=== PATIENT | female | born 1990 | race Caucasian/White ===

== ENCOUNTER 2024-03-24 20:13 | Emergency (ER) | payer MEDICARE, MEDICAID ==
[~2024-03-24 20:13] MED LIST: Iopamidol 370 76% 100 ML VIAL ONE
[2024-03-24 20:46] LABS: Bilirubin Negative (Negative); Blood, Urine Negative (Negative); Clarity Clear (Clear); Glucose, Urine (Dipstick) Negative (Negative); Ketone, Urine Negative (Negative); Leukocyte Small (Negative); Nitrite Positive (Negative); Protein, Urine (Dipstick) Negative (Neg-Trace); Urobilinogen 0.2 mg/dL (Less than 2)
[2024-03-24] MEDS ORDERED: Sodium Chloride 0.9% 1,000 ML ONE (20:46)
[2024-03-24] MEDS ORDERED: Acetaminophen 325 MG TAB ONE (20:46)
[2024-03-24 20:49] LABS: Pregnancy Test - Urine (BHCG) Negative (Negative); Pregu Control Background? CLEAR/WHITE (CLR/WHITE); Pregu Control Bar Appear? YES (CONTROL BAR)
[2024-03-24 20:59] LABS: Bacteria/HPF Rare-Few HPF (None Seen); CAUTI Indications for Culture Fever or rigors; Mucous/LPF Rare LPF (<2+); RBC/HPF 0-3 HPF (0-3); WBC/HPF 0-3 HPF (0-3)
[2024-03-24 21:01] LABS: Urine Culture Reflex No No
[2024-03-24 21:30] LABS: Influenza A by NAA Not Detected (NotDetected); Influenza B by NAA Not Detected (NotDetected); SARS-CoV-2 NAA Rapid Test Not Detected (NotDetected)
[2024-03-24 21:30] LABS: ALT (SGPT) 20 U/L (8-55); AST (SGOT) 22 U/L (5-34); Albumin 3.8 g/dL (3.5-5.0); Alkaline Phosphatase 63 U/L (40-110); Anion Gap 14 mmol/L (10-20); BUN (Urea Nitrogen) 6 mg/dL (7.0-18.7); Bilirubin, Total 0.4 mg/dL (0.2-1.2); Calc. Creatinine Clearance 0 mL/min (70-130); Calcium 10.1 mg/dL (7.8-10.44); Carbon Dioxide 20 mmol/L (22-29); Chloride 102 mmol/L (98-107); Estimated GFR 95; Glucose 120 mg/dL (70-105); Potassium 3.5 mmol/L (3.5-5.1); Protein, Total 6.8 g/dL (6.0-8.3); Sodium 132 mmol/L (136-145)
[2024-03-24 21:31] LABS: Band 5 % (5-11); Eosinophils 2 % (0-10); Hematocrit 36.1 % (36.0-47.0); Hemoglobin 11.4 g/dL (12.0-16.0); Lymphocytes 28 % (21-51); MDiff Complete? YES; Mean Corpuscular HGB CONC 31.7 g/dL (32.0-36.0); Mean Corpuscular Volume 94.7 fl (78.0-98.0); Mean Platelet Volume 6.7 fL (7.4-10.4); Monocytes 4 % (0-10); Neutrophil 58 % (42-75); Platelet Count 169 10x3/uL (130-400); RBC Distribution Width 11.8 % (11.5-14.5); Red Blood Cell (RBC) Count 3.82 mill/uL (4.20-5.40); White Blood Cell (WBC) Count 12.9 10x3/uL (4.8-10.8)
[2024-03-24] MEDS ORDERED: LevoFLOXacin 500 MG TAB ONE (22:56)
[2024-03-24] MEDS ORDERED: LevoFLOXacin 250 MG TAB ONE (22:57)
== END 2024-03-24 23:10 | disposition home or self-care (01) ==
LOC: MADERS 20:13
DX: N10 Acute pyelonephritis (principal); F17.210 Nicotine dependence, cigarettes, uncomplicated
CPT/HCPCS: 0240U; 74177; 80053; 81001; 81025; 85025; 87081; 87430; J7030; Q9967

== ENCOUNTER 2024-09-25 21:20 | Emergency (ER) | payer MEDICARE, MEDICAID ==
[2024-09-25 21:53] LABS: Bacteria/HPF 1+ HPF (None Seen); Bilirubin Negative (Negative); Blood, Urine Negative (Negative); CAUTI Indications for Culture Fever or rigors; Clarity Cloudy (Clear); Glucose, Urine (Dipstick) Negative (Negative); Ketone, Urine Negative (Negative); Leukocyte Trace (Negative); Mucous/LPF 3+ LPF (<2+); Nitrite Positive (Negative); Protein, Urine (Dipstick) Negative (Neg-Trace); RBC/HPF 0-3 HPF (0-3); Specific Gravity, Urine 1.015 (1.005-1.030); Urobilinogen 0.2 mg/dL (Less than 2); WBC/HPF Greater than 50 HPF (0-3); pH, Urine 6.5 (5.0-9.0)
[2024-09-25 21:54] LABS: Urine Culture Reflex Yes Yes
[2024-09-25] MEDS ORDERED: Sodium Chloride 0.9% 100 ML ONE (22:01)
[2024-09-25] MEDS ORDERED: Sodium Chloride 0.9% 2,000 ML ONE (22:01)
[2024-09-25] MEDS ORDERED: Cefepime 1 GM VIAL ONE (22:01)
[2024-09-25] MEDS ORDERED: Acetaminophen 500 MG TAB ONE (22:01)
[2024-09-25 22:07] LABS: #Basophils 0.1 thou/uL (0.0-0.2); #Lymphocytes 1.4 thou/uL (1.20-3.40); #Monocytes 1.5 thou/uL (0.11-0.59); #Neutrophils 12.2 thou/uL (1.40-6.50); %Basophils 0.9 % (0.0-1.0); %Eosinophils 0.1 % (0.0-10.0); %Lymphocytes 8.9 % (21.0-51.0); %Monocytes 9.7 % (0.0-10.0); %Neutrophils 80.5 % (42.0-75.0); Hematocrit 37.7 % (36.0-47.0); Hemoglobin 12.5 g/dL (12.0-16.0); Mean Corpuscular HGB CONC 33.2 g/dL (32.0-36.0); Mean Corpuscular Hemoglobin 30.5 pg (27.0-31.0); Mean Corpuscular Volume 91.9 fl (78.0-98.0); Mean Platelet Volume 7.1 fL (7.4-10.4); Platelet Count 217 10x3/uL (130-400); White Blood Cell (WBC) Count 15.1 10x3/uL (4.8-10.8)
[2024-09-25 22:17] LABS: BHCG - Serum Negative (NEGATIVE); Pregs Control Background? CLEAR/WHITE (CLR/WHITE); Pregs Control Bar Appear? YES (CONTROL BAR)
[2024-09-25 22:26] LABS: ALT (SGPT) 18 U/L (Less than 34); AST (SGOT) 24 U/L (11-34); Alkaline Phosphatase 70 U/L (40-110); Anion Gap 14 mmol/L (10-20); BUN (Urea Nitrogen) 12 mg/dL (7.0-18.7); Bilirubin, Total 0.4 mg/dL (0.3-1.2); Calc. Creatinine Clearance 0 mL/min (70-130); Calcium 10.1 mg/dL (7.8-10.44); Carbon Dioxide 19 mmol/L (22-29); Chloride 105 mmol/L (98-107); Estimated GFR 108; Globulin 3.1 g/dL (2.4-3.5); Glucose 129 mg/dL (70-105); Potassium 3.8 mmol/L (3.5-5.1); Protein, Total 7.1 g/dL (6.0-8.3); Sodium 134 mmol/L (136-145)
[2024-09-25] MEDS ORDERED: Morphine 4 MG/ML VIAL ONE (22:48)
== END 2024-09-26 00:47 | disposition home or self-care (01) ==
LOC: MADERS 21:20
DX: N39.0 Urinary tract infection, site not specified (principal); R65.10 Systemic inflammatory response syndrome (SIRS) of non-infectious origin without acute organ dysfunction; J02.9 Acute pharyngitis, unspecified; Z87.891 Personal history of nicotine dependence
CPT/HCPCS: 70486; 71046; 80053; 81001; 83605; 84703; 85025; 87040; 87077; 87081; 87086; 87428; 87430; 96361; 96365; 96375; J0692; J2270; J7030

== ENCOUNTER 2024-10-22 17:36 | Emergency (ER) | payer MEDICARE, MEDICAID ==
[2024-10-22 17:54] LABS: Bilirubin Negative (Negative); Blood, Urine Moderate (Negative); Glucose, Urine (Dipstick) Negative (Negative); Ketone, Urine Negative (Negative); Leukocyte Trace (Negative); Nitrite Positive (Negative); Protein, Urine (Dipstick) 30 mg/dL (Neg-Trace); Urobilinogen 0.2 mg/dL (Less than 2); pH, Urine 7.5 (5.0-9.0)
[2024-10-22 17:55] LABS: Clarity Very Cloudy (Clear)
[2024-10-22 18:14] LABS: Bacteria/HPF Rare-Few HPF (None Seen); CAUTI Indications for Culture Pelvic or flank pain; Mucous/LPF 4+ LPF (<2+); Squamous Epithelial 0-3 HPF (0-3)
[2024-10-22 18:16] LABS: Urine Culture Reflex Yes Yes
[2024-10-22] MEDS ORDERED: Nitrofurantoin Monohyd/M-Cryst 100 MG CAP ONE (18:47)
[2024-10-22] MEDS ORDERED: LevoFLOXacin 500 MG TAB ONE (18:47)
[2024-10-22] MEDS ORDERED: LevoFLOXacin 250 MG TAB ONE (18:48)
== END 2024-10-22 18:55 | disposition home or self-care (01) ==
LOC: MADERS 17:36
DX: N39.0 Urinary tract infection, site not specified (principal); Z87.891 Personal history of nicotine dependence
CPT/HCPCS: 81001; 87077; 87086; 99284

== ENCOUNTER 2025-06-24 09:24 | Emergency (ER) | payer MEDICARE, MEDICAID ==
[2025-06-24 09:54] LABS: Glucose, Urine (Dipstick) Negative (Negative); Leukocyte Small (Negative); Protein, Urine (Dipstick) Trace mg/dL (Neg-Trace); Specific Gravity, Urine 1.015 (1.005-1.030)
[2025-06-24 09:55] LABS: Bacteria/HPF 4+ HPF (None Seen); CAUTI Indications for Culture Dysuria,urgency,freq; RBC/HPF 0-3 HPF (0-3); WBC/HPF 21-50 HPF (0-3)
[2025-06-24 09:56] LABS: Urine Culture Reflex Yes Yes
[2025-06-24 10:01] LABS: Pregnancy Test - Urine (BHCG) Negative (Negative); Pregu Control Background? CLEAR/WHITE (CLR/WHITE); Pregu Control Bar Appear? YES (CONTROL BAR)
== END 2025-06-24 10:30 | disposition home or self-care (01) ==
LOC: MADERS 09:24
DX: S29.9XXA Unspecified injury of thorax, initial encounter (principal); N39.0 Urinary tract infection, site not specified; Z87.891 Personal history of nicotine dependence; X50.1XXA Overexertion from prolonged static or awkward postures, initial encounter
CPT/HCPCS: 71046; 81001; 81025; 87077; 87086; 87186; 99283